=== PATIENT | male | born 1955 | race Caucasian/White ===

== ENCOUNTER 2016-07-06 18:12 | Emergency (ER) | payer OTHER ==
[2016-07-06 18:20] VITALS: BP 124/77; PULSE 61; RESP 16; TEMP 97.5; O2SAT 97
--- NOTE | 2016-07-06 19:08 | EDPHY ---
H & P Time Seen by Provider: 07/06/16 18:24 HPI/ROS: CHIEF COMPLAINT: left middle finger injury HISTORY OF PRESENT ILLNESS: 61-year-old male presents with the injury to his left middle finger that occurred while pulling up his cycling pants at noon today. Patient reports he felt a pop to his distal left middle finger and he is now unable to extend. He denies pain, he denies previous injury to this finger, no numbness or tingling to this finger. Smoking Status: Never smoked Physical Exam: GEN: Awake, alert, oriented, no acute distress RESP: nl resp effort MSK: Left middle finger with a PIP joint stuck in flexion, unable to extend actively. Fully extends passively. No tenderness to palpation, no swelling, cap refill less than 2 seconds, full flexion and extension of PIP joint and MCP joint SKIN: No break in skin Constitutional: Initial Vital Signs Temperature (C) 36.4 C 07/06/16 18:17 Heart Rate 61 07/06/16 18:17 Respiratory Rate 16 07/06/16 18:17 Blood Pressure 124/77 H 07/06/16 18:17 O2 Sat (%) 97 07/06/16 18:17 O2 Delivery Mode Room Air Allergies/Adverse Reactions: No Known Allergies Allergy (Verified 07/06/16 18:17) Home Medications: Medication Instructions Recorded NK [No Known Home Meds] 07/06/16 MDM/Departure - MDM ED Course/Re-evaluation: Left middle finger placed in a stax splint that is hyperextending DIP joint of left middle finger. - Depart Disposition: Home, Routine, Self-Care Clinical Impression: Mallet finger of left hand Condition: Good Instructions: Jammed Finger (ED) Additional Instructions: Keep splint in place at all times, rest, ice, elevate, take 600 mg of ibuprofen every 8 hours with food for pain as needed. Follow up with Dr. mccabe at 1st available appointment. Call to schedule this. Referrals: Saul Mccabe MD [Medical Doctor] - As per Instructions
== END 2016-07-06 19:15 | disposition home or self-care (01) ==
DX: M20.012 Mallet finger of left finger(s) (principal); X58.XXXA Exposure to other specified factors, initial encounter; Y93.89 Activity, other specified
CPT/HCPCS: L3925

== ENCOUNTER → 2017-12-08 | Outpatient (CLI) | payer OTHER | LOC: FIMAGING 13:49 | PROVIDERS: ATTEND Internal Medicine | DX: R91.1 Solitary pulmonary nodule (principal) ==

== ENCOUNTER → 2018-04-19 | Outpatient (CLI) | payer OTHER ==
[~2018-04-19] MED LIST: DEPO METHYLPREDNISOLONE 40 MG/ML SDV ONE; IOPAMIDOL (ISOVUE 370) 100 ML BTL IV ONE; LIDOCAINE 1% 300 MG/30 ML SDV ONE; ROPIVACAINE HCL 150 MG/30 ML INJ ONE
== END ==
LOC: FIMAGING 09:28
PROVIDERS: ATTEND Orthopaedic Surgery
DX: M16.11 Unilateral primary osteoarthritis, right hip (principal)
CPT/HCPCS: J1030; J2795; Q9967